=== PATIENT | female | born 1950 | race Caucasian/White ===

== ENCOUNTER 2020-03-06 13:58 | Outpatient (REF) | payer OTHER, SELFPAY ==
[2020-03-06 14:34] VITALS: BMI 26.5
[2020-03-06 14:39] VITALS: BP 153/72; PULSE 72; RESP 16; TEMP 37; O2SAT 94
== END 2020-03-06 13:59 | disposition home or self-care (01) ==
LOC: HO.MS 13:58
PROVIDERS: PCP Internal Medicine; Visit Provider Ophthalmology
PROC: (CPT 66821; principal; 2020-03-06 15:00)
DX: H26.491 Other secondary cataract, right eye (principal); I10 Essential (primary) hypertension; L93.0 Discoid lupus erythematosus; F17.210 Nicotine dependence, cigarettes, uncomplicated; Z79.899 Other long term (current) drug therapy; Z79.52 Long term (current) use of systemic steroids
CPT/HCPCS: 66821

== ENCOUNTER 2025-04-27 09:00 | Outpatient (AMB) | payer OTHER, SELFPAY ==
--- NOTE | 2025-04-27 09:03 | A.OFFPC_ITS ---
Vital Signs 04/27/25 09:09 Height 5 ft 2.5 in Weight 120 lb 6 oz BMI 21.7 BP 98/52 L Blood Pressure Location Lt brachial Position Sitting Respiration 16 Pulse 65 Pulse Source Pulse Oximeter Temp 97.1 F Temp Source Temporal Artery Scan Pulse Oximetry (%) 95 Oxygen Delivery Method Room Air Intake Visit Reasons: Est Patient, reestablish care Building Stonecutter Required: No Accompanied by: Friend Allergies Sulfa (Sulfonamide Antibiotics) (SULFA (SULFONAMIDE ANTIBIOTICS)) Allergy (Unknown, Verified 04/27/25 09:03) UNKNOWN meloxicam Adverse Reaction (Intermediate, Unverified 04/27/25 09:48) Unknown adhesive bandage Adverse Reaction (Intermediate, Uncoded 04/27/25 09:49) skin rash Medication List - Last Reconciled 04/27/25 by Monica Reid MD acitretin 25 mg PO DAILY ascorbic acid (vitamin C) (Vitamin C) 500 mg PO BID atorvastatin 20 mg PO DAILY carvedilol 3.125 mg PO BID cyanocobalamin (vitamin B-12) 1,000 mcg PO DAILY doxepin 6 mg PO BEDTIME folic acid 1 mg PO DAILY melatonin-pyridoxine HCl (B6) 5-10 mg ER 1 tab PO BEDTIME PRN mirtazapine 30 mg PO BEDTIME potassium chloride ER 20 mEq PO DAILY tacrolimus 0.1% topical BID PRN Tobacco use date assessed: 04/27/25 Fall risk assessment: No Falls in past year Last assessed Fall Risk: 04/27/25 Dental Screening Dental Screen Date: 04/27/25 Did you have a dental visit in the last 12 months?: Yes Did you have a dental problem in the last 6 months where you did not have access to dental care?: No Was dental information given to patient?: Patient has dentist HPI HPI Comments History of Present Illness Details The patient is a 74 year old female presenting [facility] and for management of chronic conditions. Accompanied by traveling inventory associate Nancy. Memory impairment: The patient is being followed by the Memory Disorders Program at [facility], having had one visit with a nurse practitioner, with another appointment scheduled in May. Insomnia and poor appetite: Sleep is reported as not great, with frequent nighttime awakenings, sometimes to urinate, and difficulty returning to sleep. She often does not go to bed before 12:30 a.m. or 1:30 a.m. She is taking mirtazapine 30 mg for appetite and sleep, doxepin 6 mg for sleep, and melatonin as recommended by memory disorder program. Her appetite is not great, and she does not eat large portions at one sitting. She takes one Ensure supplement per day with her pills. Her weight has been stable around 120 lbs. She eats cheese omelets, cottage cheese, muffins with cream cheese, and corned beef hash, but is not interested in meat. Recurrent urinary tract infections: The patient has a history of recurrent UTIs and has previously seen a urologist in [place]. Previous treatments included antibiotics and a vaginal cream, which were ineffective. She continues to experience UTIs despite taking Azo, with the latest infection occurring about two months ago. She reports burning with urination, which started about a week ago. 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 She was seen by Dr. John, a colorectal surgeon, who recommended against surgical intervention due to risk factors. Hypotension: Her blood pressure was 98/52 mmHg, which is on the lower side, possibly related to decreased water and protein intake. She does drink water but likely not enough. 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 Matias. Asymmetric leg edema: For the past couple of weeks, her left leg has appeared larger than her right. She has not complained of pain or shoe tightness. She has not had an ultrasound in the past month. Social History: - Lives with her caregiver, Nancy, who ac companied her to the visit. [facility] Medical History (Updated 04/27/25 @ 17:03 by Monica Reid MD) Left leg swelling Dementia GERD (gastroesophageal reflux disease) Osteoporosis Colocutaneous fistula Cutaneous lupus erythematosus Mixed hyperlipidemia Primary hypertension Recurrent UTI Surgical History (Updated 04/27/25 @ 10:02 by Monica Reid MD) Hx of cholecystectomy Hx of appendectomy History of colonoscopy (~12/10/16) Social History Housing: House Patient Tobacco Use Status: Current everyday Tobacco user Cigarettes Per Day: 8 Years Smoked: 40 years e-Cigarette/Vaping Use: Never Used Advance Directives Date on File: 03/06/20 service: No Current occupational status: retired Questionnaire PHQ-9 Over the last 2 weeks, how often have you been bothered by any of the following problems? 1. Little interest or pleasure in doing things: not at all 2. Feeling down, depressed, or hopeless: not at all 3. Trouble falling or staying asleep, or sleeping too much: not at all 4. Feeling tired or having little energy: several days 5. Poor appetite or overeating: not at all 6. Feeling bad about yourself - or that you are a failure or have let yourself or your family down: not at all 7. Trouble concentrating on things, such as reading the newspaper or watching television: several days 8. Moving or speaking so slowly that other people could have noticed. Or the opposite - being so fidgety or restless that you have been moving around a lot more than usual: not at all 9. Thoughts that you would be better off or of hurting yourself in some way: not at all Total score: 2 Depression Screening Interpretation: Negative Depression Screening Done: Yes 00427 - PHQ-9 Billing: Yes Source: Developed by Drs. Samy Ring, Marisel Guerrero, Esteban Pavon and colleagues, with an educational bettina from [employer]. AUDIT C Alcohol Use Questionnaire (AUDIT-C) 1. How often do you have a drink containing alcohol?: Never 3. How often do you have six or more drinks on one occasion?: Never Total Score: 0 Review of Systems Narrative Review of Systems - General: Reports poor appetite. - Endocrine: Denies fevers. - Genitourinary: Reports nocturia and burning with urination. - Gastrointestinal: Reports occasional heartburn and nausea. Denies other reflux symptoms. - Musculoskeletal: Denies pain in her leg despite swelling. - Neurological: Reports memory issues and lack of sense of time. Physical exam (Primary Care) Vital Signs: Last Vital Signs Temp 97.1 F 04/27/25 09:09 Pulse 65 04/27/25 09:09 Resp 16 04/27/25 09:09 BP 98/52 L 04/27/25 09:09 Pulse Ox 95 04/27/25 09:09 Oxygen Delivery Method Room Air 04/27/25 09:09 BMI result Body Mass Index 21.7 Tobacco/Smoking Status: Tobacco use Status Tobacco use date assessed 04/27/25 04/27/25 09:04 Patient Tobacco Use Status Current everyday Tobacco 04/27/25 09:22 e-Cigarette/Vaping Use Never Used 04/27/25 09:22 PHQ-9: PHQ-9 Score PHQ-9: Total score 2 04/27/25 10:34 Depression Screening Interpretation: Negative Narrative Physical Exam - Vitals: Blood pressure on presentation was 98/52 mmHg. Repeat blood pressure was 98/60 mmHg. - Respiratory: Lungs are clear to auscultation. - Cardiovascular: Normal heart sounds, regular rhythm, and a murmur is present. - Abdomen: Soft, non-distended, and non-tender with good bowel sounds. - Extremities: Left ankle circumference appears larger than the right, trace karina ma bilaterally Coding Level of Care Code Est Pt Level 4 (92974) Add On Problem Visit Only Diagnoses Primary hypertension I10 Mixed hyperlipidemia E78.2 Dementia with mood disturbance, unspecified dementia severity, unspecified dementia type F03.93 Dementia type: unspecified type Dementia severity: unspecified severity Dementia behavioral or psychological symptom: with mood disturbance Cutaneous lupus erythematosus L93.2 Additional Codes PHQ-9 - 40656 - PHQ-9 Billing: Yes ([id number]) Assessment & Plan Assessment & Plan (1) Primary hypertension: Code(s): I10 - Essential (primary) hypertension Category: Medical (2) Mixed hyperlipidemia: Code(s): E78.2 - Mixed hyperlipidemia Category: Medical (3) Dementia: Code(s): F03.90 - Unspecified dementia, unspecified severity, without behavioral disturbance, psychotic disturbance, mood disturbance, and anxiety Category: Medical Qualifiers: Dementia type: unspecified type Dementia severity: unspecified severity Dementia behavioral or psychological symptom: with mood disturbance Qualified Code(s): F03.93 - Unspecified dementia, unspecified severity, with mood disturbance (4) Cutaneous lupus erythematosus: Code(s): L93.2 - Other local lupus erythematosus Category: Medical Plan Assessment and Plan 1. Recurrent Urinary Tract Infections (UTIs) - The patient continues to experience UTIs despite prior evaluation and treatments, including antibiotics and vaginal cream. - She currently reports dysuria. - Plan is to obtain a urine culture and urinalysis today. - A referral will be placed for a second opinion with a new urologist to discuss prophylactic options 2. Asymmetric Left Lower Extremity Edema - To rule out deep vein thrombosis or other vascular issues, an order will be placed for a lower extremity ultrasound of the left leg. 3. Hypotension - Blood pressure readings today were low (98/52 mmHg and 98/60 mmHg). - This may be related to dehydration. - The patient is encouraged to increase her water intake, and may also try Pedialyte or Gatorade. - Her caregiver will monitor her blood pressure twice daily for one week and report the readings. - The carvedilol dose may be adjusted if her blood pressure remains low. 4. Insomnia and Poor Appetite - Sleep remains poor despite mirtazapine, doxepin, and melatonin. - Appetite is also poor. - It was suggested to administer melatonin about an hour and a half before bedtime, around 10:00 PM. - Encouraged to continue efforts to increase protein intake. 5. Health Maintenance - To monitor her chronic conditions, including lupus, and the effects of her medications, labs will be drawn today - The plan is to follow up in three to four months for a physical/wellness visit. 6. Enterocutaneous Fistula - The fistula is stable with current management of daily dressing changes. - The recommendation to avoid surgery due to risk factors is supported. 7. Memory Impairment - The patient is established with the Memory Disorders Program. - Visit notes from their consultation will be requested to coordinate care. Plan - Labs: Obtain lab work today, including a comprehensive metabolic panel to check liver, kidney, and potassium levels. - Urinalysis and Culture: The patient will provide a urine sample today - Imaging: An outpatient ultrasound of the left lower extremity will be ordered to evaluate asymmetric swelling. - Referrals: A referral will be sent to urology for evaluation of recurrent UTIs and consideration of prophylactic treatment. Notes from the Memory Disorder Program will be requested. - Home Monitoring: The patient's caregiver will monitor her blood pressure twice daily for one week and report the findings. - Lifestyle: The patient is instructed to increase her water intake to address potential dehydration and hypotension. It was recommended to take her melatonin earlier in the evening, around 10 PM. - Follow-up: Schedule a follow-up visit in 3-4 months for a physical/wellness exam. Patient Instructions - Please increase the amount of water you drink every day. You can also have Gatorade or Pedialyte. - Your caregiver will check your blood pressure twice a day for the next week and will let me know the results. - We will get your blood drawn and get a urine sample at the lab today. - We will be scheduling an ultrasound for your left leg to check for the swelling. This will not be today; the scheduling department will call you. - We are sending a referral to a urology specialist to help with your frequent urine infections. Their office will call you to schedule an appointment. - Try to take your melatonin earlier in the evening, around 10 PM. Orders: Orders Urine Culture Today E78.2 - Mixed hyperlipidemia, F03.90 - Unspecified alex ia, unspecified severity, without behavioral disturbance, psychotic disturbance, mood disturbance, and anxiety, I10 - Essential (primary) hypertension, L93.2 - Other local lupus erythematosus, N39.0 - Urinary tract infection, site not specified Hemoglobin A1c Today E78.2 - Mixed hyperlipidemia, F03.90 - Unspecified dementia, unspecified severity, without behavioral disturbance, psychotic disturbance, mood disturbance, and anxiety, I10 - Essential (primary) hypertension, L93.2 - Other local lupus erythematosus, N39.0 - Urinary tract infection, site not specified Vitamin D 25-OH Total Today E78.2 - Mixed hyperlipidemia, F03.90 - Unspecified dementia, unspecified severity, without behavioral disturbance, psychotic disturbance, mood disturbance, and anxiety, I10 - Essential (primary) hypertension, L93.2 - Other local lupus erythematosus, N39.0 - Urinary tract infection, site not specified Vitamin B12 Today E78.2 - Mixed hyperlipidemia, F03.90 - Unspecified dementia, unspecified severity, without behavioral disturbance, psychotic disturbance, mood disturbance, and anxiety, I10 - Essential (primary) hypertension, L93.2 - Other local lupus erythematosus, N39.0 - Urinary tract infection, site not specified UA and rflx microscopic Today N39.0 - Urinary tract infection, site not sp ecified Magnesium Today E78.2 - Mixed hyperlipidemia Complete Blood Count Auto Diff Today E78.2 - Mixed hyperlipidemia, F03.90 - Unspecified dementia, unspecified severity, without behavioral disturbance, psychotic disturbance, mood disturbance, and anxiety, I10 - Essential (primary) hypertension, L93.2 - Other local lupus erythematosus, N39.0 - Urinary tract infection, site not specified Comprehensive Met. Panel Today E78.2 - Mixed hyperlipidemia, F03.90 - Unspecified dementia, unspecified severity, without behavioral disturbance, psychotic disturbance, mood disturbance, and anxiety, I10 - Essential (primary) hypertension, L93.2 - Other local lupus erythematosus, N39.0 - Urinary tract infection, site not specified LDL Cholesterol Direct Today E78.2 - Mixed hyperlipidemia, F03.90 - Unspecified dementia, unspecified severity, without behavioral disturbance, psychotic disturbance, mood disturbance, and anxiety, I10 - Essential (primary) hypertension, L93.2 - Other local lupus erythematosus, N39.0 - Urinary tract infection, site not specified TSH reflex Free T4 Today E78.2 - Mixed hyperlipidemia, F03.90 - Unspecified dementia, unspecified severity, without behavioral disturbance, psychotic disturbance, mood disturbance, and anxiety, I10 - Essential (primary) hypertension, L93.2 - Other local lupus erythematosus, N39.0 - Urinary tract infection, site not specified venous duplex LE LT Today M79.89 - Other specified soft tissue disorders Referrals Urology Referral N39.0 - Urinary tract infection, site not specified
[2025-04-27 09:09] VITALS: BP 98/52; PULSE 65; RESP 16; TEMP 36.2; O2SAT 95; BMI 21.7
== END 2025-04-27 10:49 | disposition home or self-care (01) ==
LOC: HO.HMCHD 09:01
PROVIDERS: PCP Internal Medicine; Visit Provider Internal Medicine
DX: I10 Essential (primary) hypertension (principal); E78.2 Mixed hyperlipidemia; F03.93 Unspecified dementia, unspecified severity, with mood disturbance; L93.2 Other local lupus erythematosus

== ENCOUNTER 2025-04-27 11:02 | Outpatient (REF) | payer OTHER, SELFPAY ==
[2025-04-27 13:06] LABS: MANUAL DIFF FLAG NO
[2025-04-27 13:09] LABS: Appearance Urine Cloudy; Glucose Urine UA Negative (Negative); Hematocrit 39.6 % (37.0-47.0); Hemoglobin 12.5 g/dl (12.0-16.0); Imm Gran Abs Auto 0.02 X10*3/uL (0.00-0.03); Imm Gran Pct Auto 0.2 % (0.0-0.4); Lymphocytes Absolute Auto 2.8 X10*3/uL (1.2-4.9); Mean Corpuscular HGB Conc 31.6 g/dl (31.0-35.0); Mean Corpuscular Hemoglobin 29.8 pg (27.0-33.0); Mean Corpuscular Volume 94.3 fL (80.0-98.0); NRBC Abs Auto 0.000 X10*3/uL (0.0-0.012); NRBC Pct Auto 0.0 /100WBC (0.0-0.2); PH 5.5 (5.0-9.0); Platelet Count 333 X10*3/uL (160-400); Red Blood Count 4.20 X10*6/uL (4.20-5.50); Specific Gravity - Urine 1.015 (1.005-1.025); UMIC TRIGGER UA YES; White Blood Count 9.5 X10*3/uL (4.8-10.8)
[2025-04-27 13:50] LABS: Magnesium 2.2 mg/dL (1.6-2.6)
[2025-04-27 14:06] LABS: Vitamin B12 1449 pg/mL (200-900)
== END 2025-04-27 11:03 | disposition home or self-care (01) ==
LOC: HO.10HDL 11:02
PROVIDERS: Visit Provider Internal Medicine
DX: I10 Essential (primary) hypertension (principal); E78.2 Mixed hyperlipidemia; N39.0 Urinary tract infection, site not specified; F03.93 Unspecified dementia, unspecified severity, with mood disturbance; L93.2 Other local lupus erythematosus
CPT/HCPCS: 36415; 81001; 81003; 82306; 82607; 83036; 83721; 83735; 84443; 85025; 87086; 87088; 87186; 96127

== ENCOUNTER 2025-04-29 07:35 | Outpatient (REF) | payer OTHER, SELFPAY ==
--- OUTSIDE RECORDS SUMMARY | 2025-04-07 08:30 | XMS_ITS ---
Author Organization [facility] Address [address] [place] [phone] Care Team Providers Care Form Maker Plaster Name Role Phone Monica Reid Primary Care Provider Unavaila Kiki Chow [phone] Fernandez Encounters Encounter Location Date Provider Diagnosis [address] [address] 04/07/2025 Kiki Julian Plan Of Treatment Next Appt Details Provider Name:Kiki Jordan , 05/09/2025 02:00:00 PM, [address] [place] [address], [phone], Progress Notes * Yokasta CASTILLO MDOB :1950 (74 yo F)Acc No.[id number]:04/07/2025 Progress Note Patient: Yokasta SANZ Provider: Khalif Jordan DPM :1950 A ge:74 Y S ex:Female Date:04/07/2025 Address:[address] [place] [address] Pcp:Monica Reid Subjective: * Chief Complaints: * [...] Date: 06/07/2024 Generated for Cortes Falcon on: 06/30/2024 07:41 AM EST
--- NOTE | ~2025-04-29 | US_ITS ---
EXAMINATION: US TRIPLEX LOWER EXTREMITY, LEFT CLINICAL INFORMATION: M 79.89 COMPARISON: None available. TECHNIQUE: Color-flow triplex imaging with spectral analysis and compression Doppler were performed on the left lower extremity. FINDINGS: Respiratory variation, normal compression and augmented flow are demonstrated in the interrogated left common femoral vein, superficial femoral vein, profunda femoral vein, popliteal vein and midcalf peroneal and posterior tibial venous segments and right common femoral vein. There is an intraluminal abnormality identified in the left popliteal artery to the left femoral artery with the reverse waveform and collateral vessels. Peak systolic velocity of the left femoral artery is 139 cm/s with spectral broadening and monophasic waveform. There is no Jarrett's cyst. US/US venous duplex LE IMPRESSION: No acute deep venous thrombosis interrogated veins, left lower extremity. Negative for DVT. Probable embolus involving left popliteal artery to the left femoral artery resulting in collateral flow and monophasic waveforms with spectral broadening.. The form setter helper sent text message via [employer] connect at 8:38 AM to the requesting physician. Patient sent to the emergency department. Electronically signed by: Heber Tomlinson MD 04/29/2025 08:59 AM GAGE
--- OUTSIDE RECORDS SUMMARY | 2025-04-29 07:40 | XMS_ITS ---
Author Organization [facility] Care Team Providers Care High School Tutor Name Role Phone Ada Melvin Unavailable Unavailable Kenny Bonds Unavailable Unavailable Allergies and adverse reactions Code CodeSystem Substance Reaction Severity StartDate Concern Status adhesive bandage Unknown 09/23/20[place] [address] RXNORM Meloxicam Unknown 09/23/[address] Sulfa Antibiotics Unknown 09/23/2023 active Care Team Name Role Address Phone Organization Dates Kenny Bonds PCP [address] [place] [address], [address], [place] (Office): : [facility] [place] 09/23/2023 - 09/25/2023 Ada Melvin MA, [facility] 09/23/2023 - 09/25/2023 Goals Section Goals Description Status Target Date I will be free of falls through the review date. Active 10/14/2023 I will demonstrate the appro priate use of therapy recommended/provided adaptive device(s) to increase ability in ADL's through the review date. Active 10/14/2023 I will maintain current leve l of cognitive function through the review date. Active 10/14/2023 I will maintain current leve l of function in ADL's through the review date. Active 10/14/2023 I will not have an interrupt ion in normal activities due to pain through the review date. Active 10/14/2023 I will remain free from disc omfort, complications or s/sx related to dx of GERD through review date. Active 10/14/2023 I will remain free from disc omfort, complications or s/sx related to gastro-intestinal alterations through review date. Active 10/14/2023 I will remain free of compli cations related to hypertension through review date. Active 10/14/2023 Rosaline's Advance Directives will be honored and reevaluated as appropriate. Active 10/14/2023 Rosaline's friend/HCP, River hawthorne report satisfaction with the discharge plan. Active 10/14/2023 Rosaline's needs will be anticipated and met throu gh the review Active 10/14/2023 With staff help I will not develop any skin issu es. Active 10/14/2023 Mental Status Section Date Assessment Total Score Description 09/25/2023 BIMS 04 severe cognitiv e impairment CAM 0 No delirium ind icated PHQ-9 00 09/25/2023 BIMS 04 severe cognitiv e impairment CAM 0 No delirium ind icated PHQ-9 00 Insurance Providers Coverage Status Coverage Type Relationship to Subscriber Member Identifier Subscriber Identifier Group Identifier Payer Identifier and Other information 2023 Code: 51 Code System OID:[id number] .[id number]. 5 Code System Name: Source of Payment Typology (PHDMA) Display: Managed Care (Private) Translation: Code: Code System: OID:[id number] .[id number]. 1336 Code System Name: Insurance Type Code ([id number]) Display Name: Health Maintenance Organization (HMO) Plan Code: SELF Code System Name: HL7 RoleCode Code System OID:[id number] .[id number] Display Name: Self [id number] Root: [id number] Payer Name: [facility] Address: [facility] City: [place] State: [place] Country: [place] Code: 81 Code System OID:[id number] .[id number]. 5 Code System Name: Source of Payment Typology (PHDSC) Display: Self Pay Translation: Code: 09 Code System: OID:2.16.840.1 .[id number]. 1336 Code System Name: Insurance Type Code ([id number]) Display Name: Self-pay Plan of Treatment Section Interventions Intervention Code Code System Display Name Proposed D ate Problems Problem # Description Date of onset Resolved Date Code CodeSystem Concern Status 1 ABNORMAL LEVEL OF BLOOD MINERAL 09/23/[address] active 2 DEFICIENCY OF OTHER SPECIFIED B GROUP VITAMINS 09/23/[address] active 3 DIARRHEA, UNSPECIFIED 09/23/[address] active 4 DISCOID LUPUS ERYTHEMATOSUS 09/23/[address] active 5 DIVERTICULITIS OF INTESTINE, PART UNSPECIFIED, WITHOUT PERFORATION OR ABSCESS WITHOUT BLEEDING 09/23/[address] active 6 ESSENTIAL (PRIMARY) HYPERTENSION 09/23/[address] active 7 GASTRO-ESOPHAGEAL REFLUX DISEASE WITHOUT ESOPHAGITIS 09/23/[address] active 8 HYPERLIPIDEMIA, UNSPECIFIED 09/23/[address] active 9 HYPOKALEMIA 09/23/[address] active 10 UNSPECIFIED DEMENTIA, UNSPECIFIED SEVERITY, WITHOUT BEHAVIORAL DISTURBANCE, PSYCHOTIC DISTURBANCE, MOOD DISTURBANCE, AND ANXIETY 09/23/[address] active 11 WEAKNESS 09/23/[address] active Reason for Referral No Reasons for Referral Entered Social History Social History Observation Description Start Date End Date Code Code System Current Smoking Status Tobacco smoking consumption unknown 136440948 SNOMED CT Sex Assigned At Female 1950 86073-2 [facility] Gender Identity Sexual Orientation Vital Signs Code Code System Vitals Name Values and Units Timing Information 09381-0 [facility] Pain Level Value=0.0 09/25/2023 8302-2 [facility] Height Value=64.0 Units=Inches 09/24/2023 38784-7 [facility] Weight Dwqhz=154.7 Units=Lbs 12/2023 79084-8 [facility] O2 % BldC Oximetry Value=97.0 Units= % 09/24/2023 9279-1 [facility] Respiratory Rate Value=16.0 Units=/m in 09/24/2023 8310-5 [facility] Body Temperature Value=97.7 Units= F 09/24/2023 8867-4 [facility] Heart rate Value=72.0 Units=/min 12/2023 8462-4 [facility] Blood Pressure-Diastolic Value=59 Un its=mmHg 09/24/2023 8480-6 [facility] Blood Pressure-Systolic Value=98 Uni ts=mmHg 09/24/2023
--- OUTSIDE RECORDS SUMMARY | 2025-04-29 07:40 | XMS_ITS | Patient Health Record ---
[facility] Organization [facility] Address [address] [place] [address] Care Team Providers Care Solar Consultant Name Role Phone JeanetteKeisha inmanberly Primary Care Provider Unavaila pattie Black, Kiki Unavailable [phone] Allergies Allergen (clinical drug ingredient) Drug/Non Drug Allergy documented on EMR Reaction Allergy Type Onset Date Status Adhesive Unknown Allergy Active Substance with sulfonamide structure and antibacterial mechanism of action (substance) Sulfa Antibiotics Unknown Drug Allergy Active Reason For Referral No Information Medications Medication SIG (Take, Route, Frequency, Duration) Notes Start Date End Date Status Alendronate Sodium 70 MG Oral; Duration: 84 Days Not-Taking Potassimin Active Carvedilol 3.125 MG Oral; Duration: 90 Days Active amLODIPine-Atorvastatin 10-40 MG TAKE 1 TABLET BY MOUTH EVERY DAY Oral; Duration: 90 Days Active predniSONE 10 MG TAKE 2 TABLETS BY MO UTH EVERY DAY Oral; Duration: 30 Days Not-Taking Amoxicillin-Pot Clavulanate 875-125 MG TAKE 1 TABLET BY MOUTH 2 TIMES A DAY FOR 7 DAYS WITH FOOD Oral; Duration: 7 Days Active Murine Ear 6.5 % INSTILL 5 DROPS INTO BOTH EARS 2 TIMES A DAY FOR 4 DAYS Otic; Duration: 11 Days Not-Taking Folic Acid 1 MG Oral; Duration: 90 Days Active Vitamin B-12 1000 MCG TAKE 1 TABLET BY M OUTH EVERY DAY Oral; Duration: 90 Days Active Doxepin HCl 6 MG Oral; Duration: 30 Days Active Mirtazapine 15 MG TAKE 1 TABLET BY NIMA EVERYDAY AT BEDTIME Oral; Duration: 30 Days Active Immunizations Vaccine Route Administration Date Status Comme nts Influenza Unknown 03/19/2024 Administered Social History Tobacco Use: Social History Observation Description Date Details (start date - stop date) Never Smoker NA - NA Alcohol Screen Question Answer Notes Did you have a drink containing alcohol in the p ast year? No Points 0 Interpretation Negative Tobacco use other than smoking: Question Answer Notes Are you an other tobacco user? No Tobacco Control (Standard) Question Answer Notes Tobacco use: Nonsmoker AUDIT-C (Standard) Question Answer Notes Did you have a drink containing alcohol in the p ast year? No Points 0 Interpretation Negative Problems Problem Type SNOMED Code ICD Code Onset Dates Problem Status W/U Status Risk Notes Problem Bilateral atherosclerosis of arteries of lower limbs (disorder) ([id number] ) Atherosclerosis of [place] artery of both lower extremities, with unspecified presence of clinical manifestation (I70.203) Active confirmed Vital Signs Blood pressure diastolic 75 mm Hg 12/30/2024 Height 5ft3in in 12/30/2024 Blood pressure systolic 116 mm Hg 12/30/2024 Weight 118 lbs 12/30/2024 BMI 20.9 kg/m2 12/30/2024 Procedures Procedure Date Ordered Date Performed Result Body Sit e 87036-Gcmd Destruction, 1-14 06/28/2024 N/A 65762-ENQW SKIN LESIONS, OVER 4 06/28/2024 N/A M8267-TIGEUOEI DYSTROPHIC NAILS ANY # 06/28/2024 N/A 14726-TTHY SKIN LESIONS, OVER 4 09/27/2024 N/A E1520-KWSESAJA DYSTROPHIC NAILS ANY # 09/27/2024 N/A 60333-DBIV SKIN LESIONS, OVER 4 12/30/2024 N/A Y9875-OIQWBYDU DYSTROPHIC NAILS ANY # 12/30/2024 N/A Encounters Encounter Location Date Provider Diagnosis [facility] [address] 06/28/2024 Kiki Black Atherosclerosis of [place] artery of both lower extremities, with unspecified presence of clinical manifestation I70.203 ; Plantar wart B07.0 and Pain in left toe(s) M79.675 [facility] [address] 09/27/2024 Kiki Black Atherosclerosis of [place] artery of both lower extremities, with unspecified presence of clinical manifestation I70.203 ; Plantar wart B07.0 and Pain in left toe(s) M79.675 [facility] [address] [place] [address] 12/30/2024 Kiki Black Atherosclerosis of [place] artery of both lower extremities, with unspecified presence of clinical manifestation I70.203 Assessments Encounter Date Diagnosis (ICD Code) Assessment Notes Treatment Notes Treatment Clinical Notes Section Notes 06/28/2024 Plantar wart (ICD-10 - B07.0) 06/28/2024 Atherosclerosis of [place] artery of both lower extremities, with unspecified presence of clinical manifestation (ICD-10 - I70.203) 09/27/2024 Atherosclerosis of [place] artery of both lower extremities, with unspecified presence of clinical manifestation (ICD-10 - I70.203) 12/30/2024 Atherosclerosis of [place] artery of both lower extremities, with unspecified presence of clinical manifestation (ICD-10 - I70.203) 09/27/2024 Plantar wart (ICD-10 - B07.0) 06/28/2024 Pain in left toe(s) (ICD-10 - M79.675) 09/27/2024 Pain in left toe(s) (ICD-10 - M79.675) Plan Of Treatment Pending Test Test Name Order Date 65621-Xhls Destruction, -08/28/2023 11205-Ploe Destruction, -12/15/2023 95845-Unqv Destruction, -03/25/2024 88143-Vkzy Destruction, -06/28/2024 39098-Scywslwb Plate 08/28/2023 44642-WAGM SKIN LESIONS, OVER 4 08/28/19 24 17665-TBDX SKIN LESIONS, OVER 4 12/15/19 24 10699-ZAWV SKIN LESIONS, OVER 4 06/28/19 25 95399-VDYB SKIN LESIONS, OVER 4 03/25/20 24 96045-VGNT SKIN LESIONS, OVER 4 09/28/19 25 38267-DYQK SKIN LESIONS, OVER 4 12/31/19 25 Q1497-MYEMMSBK DYSTROPHIC NAILS ANY # H7388-XPEMYVTF DYSTROPHIC NAILS ANY # O6416-LFVKUGIP DYSTROPHIC NAILS ANY # Q0385-YZEODXZB DYSTROPHIC NAILS ANY # O3739-BBGONFBJ DYSTROPHIC NAILS ANY # V3371-VIUSFIWI DYSTROPHIC NAILS ANY # Next Appt Details Provider Name:Kiki Jordan , 05/09/2025 02:00:00 PM, [address] [place], [address], Insurance Providers Payer Name Payer Address Payer Phone Subscriber Number Group Number Insured Name Patient Relationship to Insured Coverage Start Date Coverage End Date [facility] [address] [place] [address] [id number] Yokasta Castillo Self - patient is the insured Medical (General) History Medical History History ICD Code CAD (Cholesterol) Cancer High blood pressure Lupus Measles Diverticulitis Hallux valgus (acquired), left foot M20. 12 Hallux valgus (acquired), right foot M20 .11 Surgical History Surgery Date(Month/Year) GEOVANI Drain in stomach 08/2023 Hospitalization History Reason Date(Month/Year) [facility]- open sores 2023 [facility]- fall 08/2023
== END 2025-04-29 07:36 | disposition home or self-care (01) ==
LOC: HO.US 07:35
PROVIDERS: PCP Internal Medicine; Visit Provider Internal Medicine
DX: M79.89 Other specified soft tissue disorders (principal)
CPT/HCPCS: 93971

== ENCOUNTER → 2025-04-29 07:36 | Outpatient (BNV) | payer OTHER, SELFPAY | PROVIDERS: PCP Internal Medicine; Visit Provider Radiology Diagnostic Radiology | DX: K63.89 Other specified diseases of intestine (principal); I70.92 Chronic total occlusion of artery of the extremities; M79.89 Other specified soft tissue disorders | CPT/HCPCS: 75635; 93971 ==

== ENCOUNTER 2025-04-29 08:54 | Emergency (ER) | payer OTHER, SELFPAY ==
--- NOTE | ~2025-04-29 | CT_ITS ---
EXAMINATION: CT ABDOMINAL AORTA ANGIO BILATERAL RUNOFF WITH IV CONTRAST HISTORY: ? L foot arterial occlusion COMPARISON: There are no prior studies available for comparison. TECHNIQUE: CT angiogram of the abdomen and pelvis with bilateral lower extremity runoff was performed following administration of 85 mL Omnipaque 350 using standard departmental protocol. Coronal and sagittal reformatted images were generated and reviewed. This CT exam was performed with one or more of the following dose reduction techniques: automated exposure control, adjustment of the mA and/or kV according to patient size, use of iterative reconstruction technique. DLP: 388 mGy-cm FINDINGS: LOWER CHEST: The visualized lung bases are clear. There is no pleural effusion. CARDIOVASCULATURE: The heart is normal in size. There is no pericardial effusion. LIVER: The liver is normal in size and contour. No liver mass is identified. The hepatic and portal veins are patent. GALLBLADDER / BILE DUCTS: The gallbladder is surgically absent. There is no intra or extrahepatic biliary ductal dilatation. SPLEEN: The spleen is normal in size. No focal splenic lesion is identified. PANCREAS: The pancreas is unremarkable in appearance. ADRENAL GLANDS: Within normal limits. KIDNEYS/RETROPERITONEUM: No renal calculi are identified. There is no hydronephrosis. There are bilateral renal cysts measuring up to 3.5 cm on the right and 1.6 cm on the left. LYMPH NODES: No abdominal lymphadenopathy. VASCULATURE: There is diffuse atherosclerotic irregularity of the abdominal aorta. There is no aneurysm. The celiac axis, superior mesenteric artery, inferior mesenteric artery, bilateral renal arteries are patent. The bilateral common and external iliac arteries are patent. On the right, there is a probable moderate to severe stenosis of the common femoral artery. The right superficial femoral artery is patent. The right popliteal artery is patent. There is two-vessel runoff in the right calf via the anterior tibial and peroneal arteries. On the left, the common femoral artery is patent. The left superficial femoral artery is occluded at its origin. There is reconstitution of the popliteal artery just above the knee joint. There is two-vessel runoff in the left calf via the posterior tibial and peroneal arteries. MESENTERY/PERITONEUM: No free fluid. No masses. There is no free intraperitoneal gas. STOMACH: There is a small hiatal hernia. The remainder of the stomach is collapsed. SMALL BOWEL: The visualized small bowel is normal in caliber. COLON: There is focal wall thickening of the hepatic flexure of the colon. There is diverticulosis of the descending and sigmoid colon, without evidence of diverticulitis. There is an abnormal appearing soft tissue density in the left lower quadrant which is adherent to the sigmoid colon and the urinary bladder. This extends to the skin surface and is consistent with the patient's known enterocutaneous fistula. URINARY BLADDER: There is gas in the urinary bladder consistent with a fistula. PELVIC ORGANS: The prostate is normal in size. BONES: There is degenerative disc disease of the spine. There is a moderate compression deformity of L2 which appears chronic. CT/CT angio abd aorta runoff IMPRESSION: 1. Occlusion of the left superficial femoral artery at its origin with reconstitution of the popliteal artery. 2. Probable moderate to severe focal stenosis of the right common femoral artery. 3. Focal wall thickening of the hepatic flexure of the colon, suspicious for a mass. Colonoscopy is recommended. 4. Abnormal tubular appearing structure in the left lower quadrant adherent to the sigmoid colon and the urinary bladder and extending to the skin surface, consistent with the patient's known enterocutaneous fistula. Gas in the urinary bladder is also compatible with a fistula. Electronically signed by: Samy Uriarte MD 04/29/2025 12:08 PM GAGE AMANDA
[2025-04-29 08:57] VITALS: BP 156/71; PULSE 68; RESP 16; TEMP 36.6; BMI 32.6
--- NOTE | 2025-04-29 09:15 | ED.EXTPRO ---
HPI - Extremity Problem General Chief complaint: Extremity Problem Stated complaint: Arterial Clot Time Seen by Provider: 04/29/25 08:59 Source: patient Mode of arrival: ambulatory Limitations: no limitations History of Present Illness ED Provider: ALEX Malone HPI Narrative: Chief Complaint: ?My foot and ankle have been swollen and now painful for about a week.? History of Present Illness: The patient presents to the Emergency Department for evaluation of left lower extremity swelling and pain. Approximately one week ago, while putting on sneakers, the patient noted mild swelling of the left foot and ankle compared with the right. Swelling has progressively worsened and is now associated with pain. The patient was seen by her primary care provider (Dr. Nguyễn) on Friday, who ordered an ultrasound out of concern for a clot; results reportedly showed an arterial clot, and the PCP instructed the patient to come to the ED immediately. No prior anticoagulation therapy. Sensation remains intact. No reports of severe calf pain, chest pain, or shortness of breath. Related Data Home Medications ?Medication ?Instructions ?Recorded ?Confirmed acitretin 25 mg capsule 25 mg PO DAILY 04/27/25 04/27/25 ascorbic acid (vitamin C) 500 mg 500 mg PO BID 04/27/25 04/27/25 tablet (Vitamin C) atorvastatin 20 mg tablet 20 mg PO DAILY 04/27/25 04/27/25 carvedilol 3.125 mg tablet 3.125 mg PO BID 04/27/25 04/27/25 cyanocobalamin (vitamin B-12) 1,000 mcg PO DAILY 04/27/25 04/27/25 1,000 mcg tablet doxepin 6 mg tablet 6 mg PO BEDTIME 04/27/25 04/27/25 folic acid 1 mg tablet 1 mg PO DAILY 04/27/25 04/27/25 melatonin ER 5 mg-pyridoxine HCl 1 tab PO BEDTIME PRN insomnia 04/27/25 04/27/25 (B6) 10 mg tablet,extended release mirtazapine 30 mg tablet 30 mg PO BEDTIME 04/27/25 04/27/25 potassium chloride 20 mEq 20 meq PO DAILY 04/27/25 04/27/25 tablet,extended release tacrolimus 0.1 % topical ointment topical BID PRN 04/27/25 04/27/25 Previous Rx's ?Medication ?Instructions ?Recorded cephalexin 500 mg tablet 500 mg PO BID 7 days #14 tabs 04/27/25 Allergies Allergy/AdvReac Type Severity Reaction Status Date / Time Sulfa (Sulfonamide Allergy Unknown UNKNOWN Verified 04/29/25 08:59 Antibiotics) (SULFA (SULFONAMIDE ANTIBIOTICS)) meloxicam AdvReac Intermediate Unknown Verified 04/29/25 08:59 adhesive bandage AdvReac Intermediate skin rash Uncoded 04/27/25 09:49 Review of Systems Review of Systems: Yes all other systems are reviewed and are negative [facility] Past Medical History Attestation statement: The following information was validated with the patient. Source: old records reviewed and nursing notes reviewed Medical History (Updated 04/29/25 @ 12:21 by ALEX Berg) Left leg swelling Dementia GERD (gastroesophageal reflux disease) Osteoporosis Colocutaneous fistula Cutaneous lupus erythematosus Mixed hyperlipidemia Primary hypertension Recurrent UTI Surgical History (Updated 04/27/25 @ 10:02 by Monica Reid MD) Hx of cholecystectomy Hx of appendectomy History of colonoscopy (~12/10/16) Social History Social History Housing: House Patient Tobacco Use Status: Current everyday Tobacco user Cigarettes Per Day: 8 Years Smoked: 40 years e-Cigarette/Vaping Use: Never Used Advance Directives: Yes Advance Directives Information Provided: Yes Advance Directives on File: No Advance Directives Date on File: 03/06/20 service: No Current occupational status: retired Physical Exam Exam: Exam: Appearance: Alert.? Oriented X3.? No acute distress.? Head: Normocephalic, atraumatic, no step-offs or deformities Eyes: Pupils equal, round and reactive to light.? Neck: Normal inspection.? Neck supple.? CVS: Normal heart rate and rhythm.? Pulses normal.? Respiratory: No respiratory distress.? Breath sounds normal.? Abdomen: Soft and nontender.? Skin: Skin warm and dry.? Normal skin color.? Normal skin turgor.? Extremities: No calf ttp. Global weakness. Left foot and ankle with mild swelling when compared to the right sensation slightly decreased to the left distal foot patient able to wiggle toes and dorsiflex and plantar flex bilaterally I am unable to palpate dorsalis pedis anterior tibialis and posterior tibialis pulses on the left however palpable in the right. Back: No midline tenderness, no C-spine tenderness, full range of motion, no CVA tenderness bilaterally Neuro: Oriented X 3.? No motor deficit.? No sensory deficit. CN 2-12 intact Vital Signs: Vital Signs: Last Vital Signs Temp 97.9 F 04/29/25 08:57 Pulse 76 04/29/25 09:29 Resp 14 04/29/25 09:29 BP 125/59 L 04/29/25 09:29 Pulse Ox 98 04/29/25 09:29 O2 Del Method Room Air 04/29/25 09:29 BMI result Body Mass Index 32.6 vss Course Reevaluation(s) Reevaluation #1: CBC with no acute findings needing intervention. Chemistry unremarkable. PT/remarkable. Time: 10:00 Reevaluation #2: Vascular Dr. Davis at the bedside for evaluation Time: 10:20 Reevaluation #3: CT angio abdominal aorta runoff with an occlusion of the left superficial femoral artery at its origin with reconstitution of the popliteal P. Probable moderate to severe focal stenosis of the right common femoral artery. Focal wall thickening of the hepatic flexure of the colon suspicious for possible mass colonoscopy is recommended. Abnormal tubular peeling structure in the left lower quadrant adhere to the sigmoid colon and urinary bladder and extending to the skin surface consistent with fistula. Will have patient follow-up with GI and PCP to further evaluate these abnormalities. No abdominal tenderness on exam more any acute findings today that would require inpatient hospitalization. Educated patient on diagnosis and treatment plan, answered all question, patient verbalizes understanding. At this time patient will be discharged home, advised to return with new or worsening symptoms. Educated on worrisome signs and symptoms and when to return. At this time I feel comfortable discharge home. Time: 12:18 Medications Administered Discontinued Medications Generic Name Dose Route Start Last Admin Trade Name Freq PRN Reason Stop Dose Admin Iohexol 100 ml 04/29/25 11:29 04/29/25 11:29 Iohexol 350 Mg/Ml 100 Ml Infus..Btl IV 04/29/25 11:30 100 ml ONCE ONE Administration Medical Decision Making Medical Decision Making [facility] Narrative: 74-year-old female presenting with acute left foot/ankle swelling and pain with reported arterial clot on recent ultrasound. Problem #1: Suspected arterial clot ? left lower extremity Assessment: Progressive swelling and new pain over one week; outpatient ultrasound reportedly positive for arterial clot; preserved motor and sensory function. Plan: Retrieve and review the ultrasound images and report. Consult vascular surgery for further management recommendations. Monitor neurovascular status of the left foot/ankle while in ED. Pending vascular recommendations, discuss need for anticoagulation or possible intervention. Update PCP with findings and plan. Problem #2: Tobacco use Assessment: Current smoker (~? pack per day). Plan: Differential Diagnosis Differential Diagnoses: The differential diagnosis associated with the presentation includes Arterial thrombosis/embolism: Supported by reported outpatient ultrasound showing arterial clot. Acute onset of symptoms, progressive swelling and pain, and PCP concern all support this diagnosis. Preserved motor and sensory function argues against severe acute ischemia. Deep vein thrombosis (DVT): DVT is a common cause of unilateral lower extremity swelling and pain. However, the ultrasound reportedly identified an arterial (not venous) clot, and there is no mention of classic DVT risk factors or findings such as calf tenderness. Cellulitis or soft tissue infection: No fever, chills, or local warmth/erythema described. No systemic symptoms reported. Exam does not note overlying skin changes suggestive of infection. Acute exacerbation of chronic venous insufficiency: History of prior bilateral leg swelling during hospitalization, but current presentation is unilateral and acute, making this less likely. Lymphedema: No history of lymphatic surgery or malignancy. Lymphedema is typically chronic and non-painful, and usually not acute in onset. Heart failure-related edema: Prior history of bilateral swelling during hospitalization, but current swelling is unilateral and acute, which is less typical for heart failure. Trauma or musculoskeletal injury: No reported trauma or injury. Onset was spontaneous while putting on sneakers. Medication-induced edema: No medications or recent changes reported that are known to cause edema. Other vascular causes (e.g., vasculitis): No systemic symptoms or findings suggestive of vasculitis. No rash, purpura, or other signs noted. Admission/Observation Consideration of admission/observation: Escalation of care including admission/observation considered Consult Healthcare Provider Management of the patient was discussed with: Conciliation Court Judge Lab Data MDM Lab Attestation statement: I reviewed the patient's lab results. 04/29/25 09:46 04/29/25 09:46 Labs: Lab Results 04/29/25 Range/Units 09:46 WBC 7.4 (4.8-10.8) X10*3/uL RBC 3.95 L (4.20-5.50) X10*6/uL Hgb 11.8 L (12.0-16.0) g/dl Hct 37.4 (37.0-47.0) % MCV 94.7 (80.0-98.0) fL MCH 29.9 (27.0-33.0) pg MCHC 31.6 (31.0-35.0) g/dl RDW 14.2 (11.0-16.0) % Plt Count 277 (160-400) X10*3/uL MPV 8.2 L (9.4-12.3) fL Immature Gran % (Auto) 0.4 (0.0-0.4) % Neut % (Auto) 56.4 (45-73) % Lymph % (Auto) 29.8 (20-40) % [place] % (Auto) 8.3 (2-11) % Eos % (Auto) 4.7 H (0-4) % Baso % (Auto) 0.4 (0-2) % Lymph # (Auto) 2.2 (1.2-4.9) X10*3/uL Mingo # (Auto) 0.6 (0.1-1.2) X10*3/uL Eos # (Auto) 0.4 (0.0-0.4) X10*3/uL Baso # (Auto) 0.0 (0.0-0.2) X10*3/uL Abs Immat Gran (auto) 0.03 (0.00-0.03) X10*3/uL Absolute Neuts (auto) 4.2 (2.0-8.3) x10*3/uL Absolute Nucleated RBC 0.000 (0.0-0.012) X10*3/uL Nucleated RBC % (auto) 0.0 (0.0-0.2) /100WBC PT 11.9 (11.2-13.5) SEC INR 1.0 (0.9-1.1) Sodium 140 (135-145) mmol/L Potassium 4.3 (3.3-5.1) mmol/L Chloride 109 H (96-108) mmol/L Carbon Dioxide 26 (22-29) mmol/L Anion Gap 9 L (12-20) BUN 9 (9-16) mg/dL Creatinine 0.92 (0.5-1.4) mg/dL Estim Creat Clear Calc 51.2 Estimated GFR 59 Random Glucose 82 (60-115) mg/dL Calcium 8.2 L (8.4-10.2) mg/dL Magnesium 2.1 (1.6-2.6) mg/dL Total Bilirubin 0.2 (0.0-1.0) mg/dL AST 21 (5-31) U/L ALT 11 (0-31) U/L Alkaline Phosphatase 74 (39-117) U/L Total Protein 5.9 L (6.5-8.0) g/dL Albumin 3.1 L (3.5-5.0) g/dL Independent Interpretation I performed an independent interpretation of an: Ultrasound Interpretation: US/US venous duplex LE LT IMPRESSION: No acute deep venous thrombosis interrogated veins, left lower extremity. Negative for DVT. Probable embolus involving left popliteal artery to the left femoral artery resulting in collateral flow and monophasic waveforms with spectral broadening.. The conservation technician sent text message via [employer] at 8:38 AM to the requesting physician. Patient sent to the emergency department. Radiology Impression Discussion of test interpretation with radiology: I have reviewed the radiologist's reading. Independent Historian Clinical information obtained from an independent historian. History obtained from or confirmed by: Other (Healthcare proxy ) Critical Care Time Critical Care Time Critical Care Time: Yes Total Critical Care Time: 45 Attestation: I attest to this time spent taking care of the patient, obtaining history, physical, reviewing labs, imaging, treatment of patients condition +/- specialist/hospitalist consult +/- procedure Discharge Plan Discharge Clinical Impression: Arterial occlusion, Peripheral arterial disease, Abnormal CT of the abdomen Patient Disposition: Home, Self-Care Additional Instructions: Take your medications as prescribed. If you were prescribed antibiotics today, it is important that you take your medication to their entirety, do not skip any doses, do not finish them early. Follow-up with your primary care provider this week. Please discuss CT findings with your PCP will also send you a referral to gasterenterology Return to the emergency department with new or worsening symptoms. Such as fevers, chills, chest pain, shortness of breath, nausea, vomiting, dizziness, headache, vision changes, lethargy In case of emergency call 911 CT/CT angio abd aorta runoff IMPRESSION: 1. Occlusion of the left superficial femoral artery at its origin with reconstitution of the popliteal artery. 2. Probable moderate to severe focal stenosis of the right common femoral artery. 3. Focal wall thickening of the hepatic flexure of the colon, suspicious for a mass. Colonoscopy is recommended. 4. Abnormal tubular appearing structure in the left lower quadrant adherent to the sigmoid colon and the urinary bladder and extending to the skin surface, consistent with the patient's known enterocutaneous fistula. Gas in the urinary bladder is also compatible with a fistula. Prescriptions: No Action cephalexin 500 mg tablet 500 mg PO BID 7 Days Qty: 14 0RF Rx Instructions: take with food atorvastatin 20 mg tablet 20 mg PO DAILY cyanocobalamin (vitamin B-12) 1,000 mcg tablet 1,000 mcg PO DAILY carvedilol 3.125 mg tablet 3.125 mg PO BID ascorbic acid (vitamin C) [Vitamin C] 500 mg tablet 500 mg PO BID acitretin 25 mg capsule 25 mg PO DAILY mirtazapine 30 mg tablet 30 mg PO BEDTIME tacrolimus 0.1 % ointment topical BID PRN folic acid 1 mg tablet 1 mg PO DAILY doxepin 6 mg tablet 6 mg PO BEDTIME melatonin-pyridoxine HCl (B6) 5-10 mg tablet extended release 1 tab PO BEDTIME PRN (Reason: insomnia) potassium chloride 20 mEq tablet extended release 20 meq PO DAILY Referrals: Monica Ried MD [Primary Care Provider, Internal Medicine] [facility] [Provider Group, Gastroenterology] - 1 week [facility] [Provider Group, Vascular Surgery] - 5 days Print Language: Kiswahili
[2025-04-29 09:29] VITALS: BP 125/59; PULSE 76; RESP 14; O2SAT 98
--- NOTE | 2025-04-29 09:38 | PC.NURSE ---
Pts feet pink. Left cooler than right- DP and PT pulses positive via doppler but faint compared to right. No edema. Pt denies pain at this time.
[2025-04-29 09:51] LABS: MANUAL DIFF FLAG NO
[2025-04-29 09:54] LABS: Hematocrit 37.4 % (37.0-47.0); Hemoglobin 11.8 g/dl (12.0-16.0); Imm Gran Abs Auto 0.03 X10*3/uL (0.00-0.03); Imm Gran Pct Auto 0.4 % (0.0-0.4); Lymphocytes Absolute Auto 2.2 X10*3/uL (1.2-4.9); Mean Corpuscular HGB Conc 31.6 g/dl (31.0-35.0); Mean Corpuscular Hemoglobin 29.9 pg (27.0-33.0); Mean Corpuscular Volume 94.7 fL (80.0-98.0); NRBC Abs Auto 0.000 X10*3/uL (0.0-0.012); NRBC Pct Auto 0.0 /100WBC (0.0-0.2); Platelet Count 277 X10*3/uL (160-400); Red Blood Count 3.95 X10*6/uL (4.20-5.50); White Blood Count 7.4 X10*3/uL (4.8-10.8)
[2025-04-29 10:07] LABS: INTERNATIONAL NORM RATIO 1.0 (0.9-1.1); Prothrombin Time 11.9 SEC (11.2-13.5)
[2025-04-29 10:08] LABS: Alanine Aminotransferase 11 U/L (0-31); Albumin Level 3.1 g/dL (3.5-5.0); Alkaline Phosphatase 74 U/L (39-117); Anion Gap 9 (12-20); Aspartate Amino Transferase 21 U/L (5-31); Blood Urea Nitrogen 9 mg/dL (9-16); Calcium 8.2 mg/dL (8.4-10.2); Carbon Dioxide 26 mmol/L (22-29); Chloride 109 mmol/L (96-108); Creatinine Clr Calc Pharmacy 51.2; Estimated Glomerular Filt Rate 59; Magnesium 2.1 mg/dL (1.6-2.6); Potassium 4.3 mmol/L (3.3-5.1); Sodium 140 mmol/L (135-145); Total Protein 5.9 g/dL (6.5-8.0)
--- NOTE | 2025-04-29 10:09 | PC.NURSE ---
Pt ambulated to [place] with assist of her friend. Steady on feet no difficulty.
[2025-04-29] MEDS: iohexoL 350 MG/ML 100 ML INFUS..BTL IV (11:29)
[2025-04-29 12:00] VITALS: BP 148/78; PULSE 70; RESP 20; O2SAT 96
[2025-04-29 17:02] VITALS: BP 148/78; PULSE 70; RESP 20; TEMP 36.3; O2SAT 96
== END 2025-04-29 17:03 | disposition home or self-care (01) ==
PROVIDERS: Physician Assistant; Emergency Provider Emergency Medicine; PCP Internal Medicine
DX: I70.202 Unspecified atherosclerosis of native arteries of extremities, left leg (principal); M79.89 Other specified soft tissue disorders; M25.572 Pain in left ankle and joints of left foot; R93.5 Abnormal findings on diagnostic imaging of other abdominal regions, including retroperitoneum; L93.2 Other local lupus erythematosus
CPT/HCPCS: 36415; 75635; 80053; 83735; 85025; 85610; 99284; Q9967

== ENCOUNTER 2025-05-05 10:43 | Outpatient (AMB) | payer OTHER, SELFPAY ==
--- OUTSIDE RECORDS SUMMARY | 2025-04-07 08:30 | XMS_ITS ---
Author Organization [facility] Address [address] [place] [address] Care Team Providers Care Car Servicer Name Role Phone Monica Reid Primary Care Provider Unavaila Kiki Chow [phone] Fernandez Encounters Encounter Location Date Provider Diagnosis [address] [address] 04/07/2025 Kiki Julian Plan Of Treatment Next Appt Details Provider Name:Kiki Jordan , 05/09/2025 02:00:00 PM, [address] [place] [address], [phone], Progress Notes * Yokasta CASTILLO MDOB :1950 (74 yo F)Acc No.[id number]:04/07/2025 Progress Note Patient: Yokasta SANZ Provider: Khalif Jordan DPM :1950 A ge:74 Y S ex:Female Date:04/07/2025 Address:[address] [place] [address] Pcp:Monica Reid Subjective: * Chief Complaints: * [...] Date: 06/07/2024 Generated for Cortes Falcon on: 07/06/2024 01:38 PM EST
--- NOTE | 2025-05-05 10:53 | MHC.PC.OV ---
Vital Signs 05/05/25 10:56 Height 5 ft 2 in Weight 121 lb 2 oz BMI 22.2 BP 98/60 Blood Pressure Location Lt brachial Position Sitting Respiration 16 Pulse 76 Pulse Source Pulse Oximeter Temp 97.1 F Temp Source Temporal Artery Scan Pulse Oximetry (%) 96 Oxygen Delivery Method Room Air Intake Visit Reasons: ER F/U, Rash under right breast Contact Assembler Required: No Accompanied by: Friend Allergies Sulfa (Sulfonamide Antibiotics) (SULFA (SULFONAMIDE ANTIBIOTICS)) Allergy (Unknown, Verified 05/05/25 10:54) UNKNOWN meloxicam Adverse Reaction (Intermediate, Verified 05/05/25 10:54) Unknown adhesive bandage Adverse Reaction (Intermediate, Uncoded 04/27/25 09:49) skin rash Medication List - Last Reconciled 05/05/25 by Monica Reid MD acitretin 25 mg PO DAILY ascorbic acid (vitamin C) (Vitamin C) 500 mg PO BID aspirin 81 mg PO DAILY atorvastatin 20 mg PO DAILY carvedilol 3.125 mg PO BID cephalexin 500 mg PO BID 7 days cholecalciferol (vitamin D3) 1,250 mcg PO QWEEK 3 months cyanocobalamin (vitamin B-12) 1,000 mcg PO 5XW doxepin 6 mg PO BEDTIME folic acid 1 mg PO DAILY melatonin-pyridoxine HCl (B6) 5-10 mg ER 1 tab PO BEDTIME PRN mirtazapine 30 mg PO BEDTIME potassium chloride ER 20 mEq PO DAILY tacrolimus 0.1% topical BID PRN Tobacco use date assessed: 04/27/25 Fall risk assessment: No Falls in past year Last assessed Fall Risk: 05/05/25 Dental Screening Dental Screen Date: 04/27/25 HPI HPI Comments History of Present Illness Details The patient is a 74 year old female presenting for an ER follow-up and evaluation of a rash. Accompanied by transitional care manager Nancy. Recent ER visit for discovery of abnormal findings on imaging including: - Occlusion of the left superficial femoral artery at its origin with reconstitution of the popliteal artery, probable moderate to severe focal stenosis of the right common femoral artery. Focal wall thickening of the hepatic flexure of the colon, suspicious for a mass. Has upcoming appt with vascular, also has [facility] appt due to irregularity incidentally noted in colon on imaging. Has seen Dr. John before after episodes of diverticulitis and abscess requiring drain placement. Dermatitis: The patient has a history of a skin issue that began in June after a mammogram resulted in a skin irritation in the right inframammary crease. It was initially treated with bacitracin and later triple antibiotic ointment, but it never fully cleared, with intermittent pain and a persistent red spot over several months. Over the last few days, the area has flared up, becoming very large and slightly sore, but not significantly itchy. 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 Left leg swelling Dementia GERD (gastroesophageal reflux disease) Osteoporosis Colocutaneous fistula Cutaneous lupus erythematosus Mixed hyperlipidemia Primary hypertension Recurrent UTI Surgical History (Updated 04/27/25 @ 10:02 by Monica Reid MD) Hx of cholecystectomy Hx of appendectomy History of colonoscopy (~12/10/16) Social History Housing: House Patient Tobacco Use Status: Current everyday Tobacco user Cigarettes Per Day: 8 Years Smoked: 40 years e-Cigarette/Vaping Use: Never Used Advance Directives Date on File: 03/06/20 service: No Current occupational status: retired Questionnaire AUDIT C Alcohol Use Questionnaire (AUDIT-C) 1. How often do you have a drink containing alcohol?: Never 3. How often do you have six or more drinks on one occasion?: Never Total Score: 0 Review of Systems Narrative Review of Systems - Constitutional: Reports general well-being, stating she fights through everything. - Integumentary: Reports a large, slightly sore rash under the right breast that flared up over the last few days. - She states it is not significantly itchy and denies scratching it. Physical exam (Primary Care) Vital Signs: Last Vital Signs Temp 97.1 F 05/05/25 10:56 Pulse 76 05/05/25 10:56 Resp 16 05/05/25 10:56 BP 98/60 05/05/25 10:56 Pulse Ox 96 05/05/25 10:56 Oxygen Delivery Method Room Air 05/05/25 10:56 BMI result Body Mass Index 22.2 Tobacco/Smoking Status: Tobacco use Status Tobacco use date assessed 04/27/25 05/05/25 10:55 Patient Tobacco Use Status Current everyday Tobacco 05/05/25 10:55 e-Cigarette/Vaping Use Never Used 05/05/25 10:55 Narrative Physical Exam - Pulmonary: Lungs are clear to auscultation. - Cardiovascular: Regular rhythm. Soft murmur - Integumentary: Examination reveals erythematous rash in the right inframammary fold. - There is mild irritation in the left inframammary fold and medial to the left breast. - The umbilical area is clear of any rash. Coding Level of Care Code Est Pt Level 4 (60756) Add On Problem Visit Only Diagnoses Primary hypertension I10 Dermatitis L30.9 Time Spent (min) 35 Comment chart review, document prep, visit time Assessment & Plan Assessment & Plan (1) Primary hypertension: Code(s): I10 - Essential (primary) hypertension Category: Medical (2) Dermatitis: Code(s): L30.9 - Dermatitis, unspecified Category: Medical Plan Assessment and Plan 1. Candidal Intertrigo - The patient presents with a rash in the right inframammary fold, consistent with a fungal infection, likely candidal, exacerbated by moisture. - This developed from a skin irritation post-mammogram months ago and recently flared. - The plan is to prescribe an antifungal cream. - Due to her immunosuppressed state, a prophylactic antibiotic will also be prescribed to prevent secondary cellulitis. 2. HTN: - The patient 's caregiver was asked to call in the log after one week of checking BP - plan to potentially reduce carvedilol dose to once per day Plan - Prescribe an antifungal cream for the rash. - Prescribe an antibiotic to prevent cellulitis, given the patient's immunosuppressed status. - Patient to monitor blood pressure daily for one week and call in the results. - Advised patient/caregiver to re-contact [facility] Dr. John's office regarding the general surgery referral - Follow up as scheduled Patient Instructions - An antifungal cream will be prescribed for your rash; apply it as directed. - You will also be prescribed an antibiotic pill to prevent any skin infection; take this as directed. - Please check your blood pressure once a day for one week. - After you have a week's worth of readings, call our office to report them. Orders: Orders Urine Culture Today N39.0 - Urinary tract infection, site not specified Medications: New clotrimazole 1% 1 appl topical TID 45 grams 0RF breast rash amoxicillin 500 mg PO TID 21 tabs 0RF Discontinued cephalexin take with food Discontinued Reason: Doctor's Order 500 mg PO BID 7 days 14 tabs 0RF
[2025-05-05 10:56] VITALS: BP 98/60; PULSE 76; RESP 16; TEMP 36.2; O2SAT 96; BMI 22.2
--- OUTSIDE RECORDS SUMMARY | 2025-05-05 13:39 | XMS_ITS | Patient Health Record ---
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, with unspecified presence of clinical manifestation (I70.203) Active confirmed Vital Signs Blood pressure diastolic 75 mm Hg 12/30/2024 Height 5ft3in in 12/30/2024 Blood pressure systolic 116 mm Hg 12/30/2024 Weight 118 lbs 12/30/2024 BMI 20.9 kg/m2 12/30/2024 Procedures Procedure Date Ordered Date Performed Result Body Sit e 30239-Rosx Destruction, 1-14 06/28/2024 N/A 65929-UQID SKIN LESIONS, OVER 4 06/28/2024 N/A D3551-EPHDIJGS DYSTROPHIC NAILS ANY # 06/28/2024 N/A 52036-UJET SKIN LESIONS, OVER 4 09/27/2024 N/A H5283-CCLCIMYV DYSTROPHIC NAILS ANY # 09/27/2024 N/A 04744-VGHW SKIN LESIONS, OVER 4 12/30/2024 N/A G0838-QHCDXZGJ DYSTROPHIC NAILS ANY # 12/30/2024 N/A Encounters Encounter Location Date Provider Diagnosis [facility] [address] 06/28/2024 Kiki Black 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, with unspecified presence of clinical manifestation I70.203 ; Plantar wart B07.0 and Pain in left toe(s) M79.675 [facility] [address] 09/27/2024 Kiki Black 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, with unspecified presence of clinical manifestation I70.203 ; Plantar wart B07.0 and Pain in left toe(s) M79.675 [facility] [place] [address] [place] [address] 12/30/2024 Kiki Black 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, with unspecified presence of clinical manifestation I70.203 Assessments Encounter Date Diagnosis (ICD Code) Assessment Notes Treatment Notes Treatment Clinical Notes Section Notes 06/28/2024 Plantar wart (ICD-10 - B07.0) 06/28/2024 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, with unspecified presence of clinical manifestation (ICD-10 - I70.203) 09/27/2024 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, with unspecified presence of clinical manifestation (ICD-10 - I70.203) 12/30/2024 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, with unspecified presence of clinical manifestation (ICD-10 - I70.203) 09/27/2024 Plantar wart (ICD-10 - B07.0) 06/28/2024 Pain in left toe(s) (ICD-10 - M79.675) 09/27/2024 Pain in left toe(s) (ICD-10 - M79.675) Plan Of Treatment Pending Test Test Name Order Date 81484-Dtuj Destruction, -08/28/2023 15799-Cyxx Destruction, -12/15/2023 64537-Rgbc Destruction, -03/25/2024 92776-Bdet Destruction, -06/28/2024 42309-Jfxxtxab Plate 08/28/2023 70661-MXIN SKIN LESIONS, OVER 4 08/28/19 24 52856-LBXK SKIN LESIONS, OVER 4 12/15/19 24 31020-ILIT SKIN LESIONS, OVER 4 06/28/19 25 78772-IWPA SKIN LESIONS, OVER 4 03/25/20 24 56897-NFDL SKIN LESIONS, OVER 4 09/28/19 25 23734-JUBS SKIN LESIONS, OVER 4 12/31/19 25 H9822-GLNTFGXJ DYSTROPHIC NAILS ANY # V7890-VKBGRKVR DYSTROPHIC NAILS ANY # R4982-OOGRXXWX DYSTROPHIC NAILS ANY # O8175-VGEOJRQH DYSTROPHIC NAILS ANY # A7385-MCSZCOMV DYSTROPHIC NAILS ANY # Y7380-NFTDCBAT DYSTROPHIC NAILS ANY # Next Appt Details Provider Name:Kiki Jordan , 05/09/2025 02:00:00 PM, [address] [place], [address], Insurance Providers Payer Name Payer Address Payer Phone Subscriber Number Group Number Insured Name Patient Relationship to Insured Coverage Start Date Coverage End Date [facility] [address] [place] [address] [phone] [id number] Yokasta Castillo Self - patient is [...]
== END 2025-05-05 11:45 | disposition home or self-care (01) ==
LOC: HO.HMCHD 10:43
PROVIDERS: PCP Internal Medicine; Visit Provider Internal Medicine
DX: I10 Essential (primary) hypertension (principal); L30.9 Dermatitis, unspecified

== ENCOUNTER 2025-05-05 11:51 | Outpatient (REF) | payer OTHER, SELFPAY | END 2025-05-05 11:52 | disposition home or self-care (01) | LOC: HO.10HDL 11:51 | PROVIDERS: Visit Provider Internal Medicine | DX: N39.0 Urinary tract infection, site not specified (principal) | CPT/HCPCS: 87086; 87088; 87186 ==

== ENCOUNTER 2025-05-11 10:59 | Outpatient (AMB) | payer OTHER, SELFPAY ==
--- OUTSIDE RECORDS SUMMARY | 2025-04-07 08:30 | XMS_ITS ---
Author Organization [facility] Address [address] [address] Care Team Providers Care Tip Bander Name Role Phone Monica Reid Primary Care Provider Unavaila Kiki Chow [phone] Fernandez Encounters Encounter Location Date Provider Diagnosis [address] [address] 04/07/2025 Kiki Julian Plan Of Treatment Next Appt Details Provider Name:Kiki Jordan , 08/22/2025 11:15:00 AM, [address] [place] [address], [phone], Progress Notes * Yokasta CASTILLO MDOB :1950 (74 yo F)Acc No.[id number]:04/07/2025 Progress Note Patient: Yokasta SANZ Provider: Khalif Jordan DPM :1950 A ge:74 Y S ex:Female Date:04/07/2025 Address:[address] [place] [address] Pcp:Monica Reid Subjective: * Chief Complaints: * [address] Fernandez. * Medical History: Objective: * Vitals: Assessment: Plan: * Treatment: * Images: * The named appointment provid er may or may not be the originator of this progress note, and it is not deemed complete until electronically signed by the appointment provider. Sign off status: Pending * Provider: Khalif Jordan DPM Date: 06/07/2024 Generated for Cortes Falcon on: 07/12/2024 11:04 AM EST
--- OUTSIDE RECORDS SUMMARY | 2025-05-09 09:00 | XMS_ITS ---
[facility] Address [address] [place] [address] Care Team Providers Care Tare Worker Name Role Phone Monica Reid Primary Care Provider Unavaila ble Black, Kiki Unavailable [phone] Allergies Allergen (clinical drug ingredient) Drug/Non Drug Allergy documented on EMR Reaction Allergy Type Onset Date Status Adhesive Unknown Allergy Active Substance with sulfonamide structure and antibacterial mechanism of action (substance) Sulfa Antibiotics Unknown Drug Allergy Active REASON FOR VISIT At Risk Footcare, Painful Nail(s) aggrevated by shoes and causing difficulty standing/walking. Medications Medication SIG (Take, Route, Frequency, Duration) Notes Start Date End Date Status Mirtazapine 15 MG TAKE 1 TABLET BY NIMA TH EVERYDAY AT BEDTIME Oral; Duration: 30 Days Active Amoxicillin-Pot Clavulanate 875-125 MG TAKE 1 TABLET BY MOUTH 2 TIMES A DAY FOR 7 DAYS WITH FOOD Oral; Duration: 7 Days Active Murine Ear 6.5 % INSTILL 5 DROPS INTO BOTH EARS 2 TIMES A DAY FOR 4 DAYS Otic; Duration: 11 Days Not-Taking predniSONE 10 MG TAKE 2 TABLETS BY MO UTH EVERY DAY Oral; Duration: 30 Days Not-Taking Alendronate Sodium 70 MG Oral; Duration: 84 Days Not-Taking Carvedilol 3.125 MG Oral; Duration: 90 Days Active amLODIPine-Atorvastatin 10-40 MG TAKE 1 TABLET BY MOUTH EVERY DAY Oral; Duration: 90 Days Active Folic Acid 1 MG Oral; Duration: 90 Days Active Vitamin B-12 1000 MCG TAKE 1 TABLET BY M OUTH EVERY DAY Oral; Duration: 90 Days Active Doxepin HCl 6 MG Oral; Duration: 30 Days Active Potassimin Active Social History Tobacco Use: Social History Observation Description Date Details (start date - stop date) Never Smoker NA - NA Tobacco use other than smoking: Question Answer Notes Are you an other tobacco user? No Tobacco Control (Standard) Question Answer Notes Tobacco use: Nonsmoker AUDIT-C (Standard) Question Answer Notes Did you have a drink containing alcohol in the p ast year? No Points 0 Interpretation Negative Vital Signs Height 5ft3in in 05/09/2025 Weight 118 lbs 05/09/2025 BMI 20.9 kg/m2 05/09/2025 Blood pressure systolic 116 mm Hg 05/09/20 25 Blood pressure diastolic 70 mm Hg 025 Procedures Procedure Date Ordered Date Performed Result Body Sit e 62844-RBQM SKIN LESIONS, OVER 4 05/09/2025 N/A E4881-TSIGRRBM DYSTROPHIC NAILS ANY # 05/09/2025 N/A Encounters Encounter Location Date Provider Diagnosis [facility] [place] [address] [place] [address] 05/09/2025 Kiki Jordan Atherosclerosis of campo artery of both lower extremities, with unspecified presence of clinical manifestation I70.203 Assessments Encounter Date Diagnosis (ICD Code) Assessment Notes Treatment Notes Treatment Clinical Notes Section Notes 05/09/2025 Atherosclerosis of campo artery of both lower extremities, with unspecified presence of clinical manifestation (ICD-10 - I70.203) Plan Of Treatment Pending Test Test Name Order Date 01085-IRIZ SKIN LESIONS, OVER 4 05/09/20 25 H5392-XWSOLYVV DYSTROPHIC NAILS ANY # Next Appt Details Follow Up: 2 Months, Reason: Provider Name:Kiki Jordan , 08/22/2025 11:15:00 AM, [address] [place] [address], [phone], Procedure Notes * Category Sub-Category Detail Notes Keratoma Treatment Parring or Cutting o f Benign Hyperkeratotic Lesion(s) (-57) More than 4 Lesions - Due to the at risk nature of the patients medical condition as documented in the exam findings, performance of this keratoderma treatment is medically necessary as its management by an unskilled/untrained nonprofessional would put this patients foot and overall health at risk. Therefore, the benign hyperkeratotic lesions, ( 5 ) in total, locations as stated and described in the exam ( IPJ , T5 , SUB MTH (s) , 1 , B/L , Heel(s) , B/L ), were pared, and/or cut utilizing a sterile 15 blade, tissue nippers, and/or power dremel instrumentation by the physician of record - 51804, Q8 Nail Reduction Nail Reduction (-27) Trimming o f all dystrophic nails - Due to the at risk nature of the patients medical condition as documented in the exam findings, performance of this nail treatment is medically necessary as its management by an unskilled/untrained nonprofessional would put this patients foot and overall health at risk. Therefore, the dystrophic nails, in locations as stated and described in the exam ( T1, T2, T3, T4, T6, T7, T8, T9, ), were debrided by the phisician of record to reduce/remove overall nail length and girth, by manual and electrical means with use of a nail nipper and/or dremel, to more viable healthy nail plate or bed tissue - G0127, Q8 Progress Notes * Yokasta CASTILLO MDOB :1950 (74 yo F)Acc No.[id number]:05/09/2025 Progress Note Patient: Rochelle OSCAR Yokasta Moeller Provider: Khalif Jordan DPM :1950 A ge:74 Y S ex:Female Date:05/09/2025 Address:[address] [place], [place] [id number] Pcp:Monica Reid Subjective: * Chief Complaints: * A t Risk FootcarePainful Nail(s) aggrevated by shoes and causing difficulty standing/walking. * HPI: A t Risk footcare: Pt States Last PCP Visit: D ate: 0 09/01/2024 P ainful Nails: Pt States Last PCP Visit: D ate: 0 09/01/2024 * ROS: G eneral/Constitutional: Nausea d enies. V omiting d enies. H evelyn Thirst d enies. L oss appetite d enies. C hills d enies. F atigue d enies.?Fever d enies. N ight Sweats d enies. U nexplained weight loss d enies. U nexplained weight gain d enies. H EENTM: Dentures a dmits. D izziness d enies. G lasses/contacts a dmits. R etinopathy d enies. B lurred/double vision d enies. T MJ?denies. D ischarge/drainage d enies. I mplants d enies. S ore throat d enies. D ental implants d enies. H shiv of hearing d enies. D ifficulty chewing/swallowing/speaking d enies. N ose bleeds d enies. S ore mouth d enies. ? R espiratory: On Oxygen d enies. P neumonia/pleurisy d enies.?Bronchitis d enies. E mphysema d enies. C oughing d enies. C ough blood?denies. S hortness of breath d enies. W heezing d enies. C ardiovascular: Pacemaker d enies. M SHOW HOST/HOSTESS d enies. W PW d enies. C HF d enies. H eart attack d enies. S eptal defect d enies. R apid beat d enies. C hest pain d enies. A trial Fib. d enies. M urmur/Palpitations d enies. G astrointestinal: Hemorrhoids d enies. S tomach/Abdominal pain d enies. D ark blood stool d enies. I rritable bowel d enies. C onstipation d enies. D iarrhea d enies. H ematology: Swelling d enies. C lots d enies. V aricose Veins d enies. B ruising a dmits. B leeding problem d enies. G enitourinary: Blood urine d enies. F requent/Painfu/urination/bladder control d enies. K idney stones d enies. I nfection (UTI) d enies. N ephropathy d enies. s ex trans dis (STD) d enies. P rostate d enies. M usculoskeletal: Hammertoes d enies. B unions d enies. B ack Pain d enies. M uscle Cramps/ Resting d enies. M uscle cramps / walking d enies.?Generalized aches and pains a dmits. W eakness d enies. I nteg.: Andrews d enies. S cars d enies. C orns/calluses?, admits. I ngrown nails d enies. P ainful nails , admits. O pen Sores d enies. R ashes d enies. N eurologic: Difficulty sleeping d enies. B rain disorder d enies. N umbness d enies. B alance trouble d enies. C onfusion d enies. F ainting/blackouts d enies. T ingling d enies. T remors d enies. * Medical History: * Surgical History: J P Drain in stomach 08/2023 * Hospitalization/Major Diagno stic Procedure: [facility]- fall are one [facility]- open sores 11/2023 * Family History: M other: . F ather: . * Social History: T obacco Use: T obacco use other than smoking A re you an other tobacco user? N o Tobacco Control (Standard) T obacco use: N onsmoker D rugs/Alcohol: D rugs H ave you used drugs other than those for medical reasons in the past 12 months? N o M iscellaneous: C affeine: yes, 2-3 cups per day. Children: no. Exercise: no. Marital status: single. 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 D rug/Alcohol: A MOJGAN-C (Standard) D id you have a drink containing alcohol in the past year? N o P oints 0 I nterpretation N egative * Medications: T akingPotassimin Carvedilol 3.125 MG Tablet Oral amLODIPine-Atorvastatin 10-40 MG Tablet TAKE 1 TABLET BY MOUTH EVERY DAY Oral Folic Acid 1 MG Tablet Oral Vitamin B-12 1000 MCG Tablet TAKE 1 TABLET BY MOUTH EVERY DAY Oral Doxepin HCl 6 MG Tablet Oral Mirtazapine 15 MG Tablet TAKE 1 TABLET BY MOUTH EVERYDAY AT BEDTIME Oral Amoxicillin-Pot Clavulanate 875-125 MG Tablet TAKE 1 TABLET BY MOUTH 2 TIMES A DAY FOR 7 DAYS WITH FOOD Oral Taking Potassimin Taking Carvedilol 3.125 MG Tablet Oral Taking amLODIPine-Atorvastatin 10-40 MG Tablet TAKE 1 TABLET BY MOUTH EVERY DAY Oral Taking Folic Acid 1 MG Tablet Oral Taking Vitamin B-12 1000 MCG Tablet TAKE 1 TABLET BY MOUTH EVERY DAY Oral Taking Doxepin HCl 6 MG Tablet Oral Taking Mirtazapine 15 MG Tablet TAKE 1 TABLET BY MOUTH EVERYDAY AT BEDTIME Oral Taking Amoxicillin-Pot Clavulanate 875-125 MG Tablet TAKE 1 TABLET BY MOUTH 2 TIMES A DAY FOR 7 DAYS WITH FOOD Oral Not-Taking/PRNMurine Ear 6.5 % Solution INSTILL 5 DROPS INTO BOTH EARS 2 TIMES A DAY FOR 4 DAYS Otic predniSONE 10 MG Tablet TAKE 2 TABLETS BY MOUTH EVERY DAY Oral Alendronate Sodium 70 MG Tablet Oral Medication List reviewed and reconciled with the patientNot-Taking/PRN Murine Ear 6.5 % Solution INSTILL 5 DROPS INTO BOTH EARS 2 TIMES A DAY FOR 4 DAYS Otic Not-Taking/PRN predniSONE 10 MG Tablet TAKE 2 TABLETS BY MOUTH EVERY DAY Oral Not-Taking/PRN Alendronate Sodium 70 MG Tablet Oral Medication List reviewed and reconciled with the patient * Allergies: A dhesiveSulfa Ruby[Allergies Verified] Objective: * Vitals: H t: 5ft3in, Wt:118, BMI: 20.9, Shoe size:6.5, BP:116/70mm Hg, Ht-cm: 160.02 cm, Wt-k.52 kg. * Examination: G eneral Examination: GENERAL APPEARANCE: R jessies a pleasant, alert, well nourished, well-developed, well hydrated individual, who demonstrates proper attention to hygiene/body habitus, and is in no acute distress, Pt serves as own historian for office visit today. ORIENTED: p erson, place, and time. V ascular: DP PULSES (B): 0/4, B/L. PT PULSES (B): 0/4, B/L. CAPILLARY FILL TIME: delayed, all digits, B/L. TROPHIC CONDITION-TEXTURE/ELASTICITY/TURGOR/HAIR GROWTH (B):? decreased, B/L, dystrophic (thin,shiny). TEMPERTURE GRADIENT (C): decreased, cool to cool, proximal to distal, B/L. PIGMENTATION: h emosiderin deposition B/L. EDEMA (C): 1 /4 , B/L. CLAUDICATION (C): d enies, B/L. REST PAIN: d enies, B/L. TELANGECTASIA: p resent. D ermatologic: SKIN FINDINGS: S kin exam reveals Keratotic lesion(s) located at , IPJ , T 5 , SUB MTH (s) , 1 , B/L , Heel(s) , B/L. N ails: NAILS are: E longated, overgrown, dystrophic ,T1, T2, T3, T4, T6, T7, T8, T9. Assessment: * Assessment: 1. A therosclerosis of campo artery of both lower extremities, with unspecified presence of clinical manifestation - I70.203 (Primary) Plan: * Treatment: * Procedures: K eratoma Treatment: Parring or Cutting of Benign Hyperkeratotic Lesion(s) ( -57) More than 4 Lesions - Due to the at risk nature of the patients medical condition as documented in the exam findings, performance of this keratoderma treatment is medically necessary as its management by an unskilled/untrained nonprofessional would put this patients foot and overall health at risk. Therefore, the benign hyperkeratotic lesions, ( 5 ) in total, locations as stated and described in the exam ( IPJ , T5 , SUB MTH (s) , 1 , B/L , Heel(s) , B/L ), were pared, and/or cut utilizing a sterile 15 blade, tissue nippers, and/or power dremel instrumentation by the physician of record - 58677, Q8. N ail Reduction: Nail Reduction ( -27) Trimming of all dystrophic nails - Due to the at risk nature of the patients medical condition as documented in the exam findings, performance of this nail treatment is medically necessary as its management by an unskilled/untrained nonprofessional would put this patients foot and overall health at risk. Therefore, the dystrophic nails, in locations as stated and described in the exam ( T1, T2, T3, T4, T6, T7, T8, T9, ), were debrided by the phisician of record to reduce/remove overall nail length and girth, by manual and electrical means with use of a nail nipper and/or dremel, to more viable healthy nail plate or bed tissue - G0127, Q8. * Procedure Codes: 1 1057 TRIM SKIN LESIONS, OVER 4, Modifiers: Q8 G0127 TRIMMING DYSTROPHIC NAILS ANY #, Modifiers: Q8 , XS * Follow Up: 2 Months * Images: * Sign off status: Completed true * Provider: Khalif Jordan DPM Date: 07/10/2024 Generated for Cortes mortensen/Falisa/eTransmitting on: 07/12/2024 11:04 AM EST History and Physical Notes * HPI (History of Present Illness) Category Sub-Category Detail Notes Category Not es Painful Nails Pt States Last PCP Visit: Date:: 09/01/2024 At Risk footcare Pt States Last PCP Visit: Date:: 09/02/19 25 Examination Category Sub-Category Detail Notes Category Not es Dermatologic SKIN FINDINGS: Skin exam reveal s Keratotic lesion(s) located at , IPJ , T5 , SUB MTH (s) , 1 , B/L , Heel(s) , B/L VERRUCA: Orthopedic FOOTWEAR EVALUATION: General Examination GENERAL APPEARANCE: Reveals a pleasant, alert, well nourished, well-developed, well hydrated individual, who demonstrates proper attention to hygiene/body habitus, and is in no acute distress, Pt serves as own historian for office visit today ORIENTED: person, place, and t elise [facility] DP PULSES (B): 0/4, B/L PT PULSES (B): 0/4, B/L CAPILLARY FILL TIME: delayed, all digits , B/L TEMPERTURE GRADIENT (C): decreased, cool to cool, proximal to distal, B/L TROPHIC CONDITION-TEXTURE/ELASTICITY/TURGOR/HAIR GROWTH (B): decreased, B/L, dystrophic (thin,shiny) EDEMA (C): 1/4 , B/L TELANGECTASIA: present CLAUDICATION (C): denies, B/L REST PAIN: denies, B/L PIGMENTATION: hemosiderin depositi on B/L Nails NAILS are: Elongated, overg rown, dystrophic ,T1, T2, T3, T4, T6, T7, T8, T9
--- OUTSIDE RECORDS SUMMARY | 2025-05-11 11:05 | XMS_ITS | Patient Health Record ---
Author Organization [facility] Address [address] [place] [address] Care Team Providers Care Blow Down Operator Name Role Phone JeanetteKeisha inmanberly Primary Care Provider Unavaila pattie Black, Kiki Unavailable [phone] Allergies Allergen (clinical drug ingredient) Drug/Non Drug [...] 6 MG Oral; Duration: 30 Days Active Immunizations Vaccine Route Administration Date Status Comme nts Influenza Unknown 03/19/2024 Administered Influenza Unknown 01/20/2025 Administered Social History Tobacco Use: Social History [...] atherosclerosis of arteries of lower limbs (disorder) ([id number] ) Atherosclerosis of [place] artery of both lower extremities, with unspecified presence of clinical manifestation (I70.203) Active confirmed Vital Signs Blood pressure diastolic 70 mm Hg 05/09/2025 Height 5ft3in in 05/09/2025 Blood pressure systolic 116 mm Hg 05/09/2025 Weight 118 lbs 05/09/2025 BMI 20.9 kg/m2 05/09/2025 Procedures Procedure Date Ordered Date Performed Result Body Sit e 09971-Jtdm Destruction, 1-14 06/28/2024 N/A 24073-WDGF SKIN LESIONS, OVER 4 06/28/2024 N/A R5772-SGGAQEIA DYSTROPHIC NAILS ANY # 06/28/2024 N/A 31004-VUHW SKIN LESIONS, OVER 4 09/27/2024 N/A B2472-OURRHTXI DYSTROPHIC NAILS ANY # 09/27/2024 N/A 44054-OFNG SKIN LESIONS, OVER 4 12/30/2024 N/A Z6207-UUVXMANS DYSTROPHIC NAILS ANY # 12/30/2024 N/A 59399-DURA SKIN LESIONS, OVER 4 05/09/2025 N/A I1539-ASVLEHAA DYSTROPHIC NAILS ANY # 05/09/2025 N/A Encounters Encounter Location Date Provider Diagnosis [facility] [address] [address] 06/28/2024 Kiki Black Atherosclerosis of [place] artery of both lower extremities, with unspecified presence of clinical manifestation I70.203 ; Plantar wart B07.0 and Pain in left toe(s) M79.675 [facility] [address] [address] 09/27/2024 Kiki Black Atherosclerosis of [place] artery of both lower extremities, with unspecified presence of clinical manifestation I70.203 ; Plantar wart B07.0 and Pain in left toe(s) M79.[address] [address] 12/30/2024 Kiki Black Atherosclerosis of [place] artery of both lower extremities, with unspecified presence of clinical manifestation I70.[address] [facility] [address] 05/09/2025 Kiki Black Atherosclerosis of [place] artery of both lower extremities, with unspecified presence of clinical manifestation I70.203 Assessments Encounter Date Diagnosis (ICD Code) Assessment Notes Treatment Notes Treatment Clinical Notes Section Notes 06/28/2024 Plantar wart (ICD-10 - B07.0) 06/28/2024 Atherosclerosis of [place] artery of both lower extremities, with unspecified presence of clinical manifestation (ICD-10 - I70.203) 09/27/2024 Atherosclerosis of [place] artery of both lower extremities, with unspecified presence of clinical manifestation (ICD-10 - I70.203) 12/30/2024 Atherosclerosis of [place] artery of both lower extremities, with unspecified presence of clinical manifestation (ICD-10 - I70.203) 05/09/2025 Atherosclerosis of [place] artery of both lower extremities, with unspecified presence of clinical manifestation (ICD-10 - I70.203) 09/27/2024 Plantar wart (ICD-10 - B07.0) 06/28/2024 Pain in left toe(s) (ICD-10 - M79.675) 09/27/2024 Pain in left toe(s) (ICD-10 - M79.675) Plan Of Treatment Pending Test Test Name Order Date 82418-Zdze Destruction, -08/28/2023 33408-Mlxc Destruction, 06-0112/15/2023 25415-Vtrn Destruction, -03/25/2024 57396-Tclp Destruction, -06/28/2024 07059-Ykcvufff Plate 08/28/2023 93887-DYSK SKIN LESIONS, OVER 4 08/28/19 24 62284-AGOA SKIN LESIONS, OVER 4 12/15/19 24 70537-VRYF SKIN LESIONS, OVER 4 06/28/19 25 33363-CMQL SKIN LESIONS, OVER 4 03/25/20 24 49243-CFGA SKIN LESIONS, OVER 4 09/28/19 25 74083-AYGC SKIN LESIONS, OVER 4 12/31/19 25 73178-BZML SKIN LESIONS, OVER 4 05/09/20 25 T9876-WQJKLVFC DYSTROPHIC NAILS ANY # F9562-VHWZTNCI DYSTROPHIC NAILS ANY # L3684-BVEHHQOW DYSTROPHIC NAILS ANY # T4042-QHXAZUEQ DYSTROPHIC NAILS ANY # H9781-KNVDZKSQ DYSTROPHIC NAILS ANY # P4234-ZQHTNAAA DYSTROPHIC NAILS ANY # Z1139-WBROFVNA DYSTROPHIC NAILS ANY # Next Appt Details Provider Name:Kiki Jordan , 08/22/2025 11:15:00 AM, [address] [place], [address], Insurance Providers Payer Name Payer Address Payer Phone Subscriber Number Group Number Insured Name Patient Relationship to Insured Coverage Start Date Coverage End Date [facility] [address] [place] [address] [id number] Yokasta Castillo Self - patient is [...]
--- OUTSIDE RECORDS SUMMARY | 2025-05-11 11:05 | XMS_ITS ---
Author Organization [facility] Care Team Providers Care Hat And Cap Drying Room Attendant Name Role Phone Ada Melvin Unavailable Unavailable Kenny Bonds Unavailable Unavailable Allergies and adverse reactions Code CodeSystem Substance Reaction Severity StartDate Concern Status adhesive bandage Unknown 09/23/20[place] [address] RXNORM Meloxicam Unknown 09/23/[address] Sulfa Antibiotics Unknown 09/23/2023 active Care Team Name Role Address Phone Organization Dates Kenny Bonds PCP [address] [place] [address], [address], [place] (Office): : [facility] 09/23/2023 - 09/25/2023 Ada Melvin [place], [facility] 09/23/2023 - 09/25/2023 Goals Section Goals [...] information 2023 Code: 51 Code System OID:[id number] .[id number]. 5 Code System Name: Source of Payment Typology (PHDNJ) Display: Managed Care (Private) Translation: Code: Code System: OID:[id number] .[id number]. 1336 Code System Name: Insurance Type Code ([id number]) Display Name: Health Maintenance Organization (HMO) Plan Code: SELF Code System Name: HL7 RoleCode Code System OID:[id number] .[id number] Display Name: Self [id number] Root: [id number] Payer Name: [employer] Address: [facility] [place] City: [place] State: [place] Country: [place] Code: 81 Code System OID:[id number] .[id number]. 5 Code System Name: Source of Payment Typology (PHDSC) Display: Self Pay Translation: Code: 09 Code System: OID:[id number] .[id number]. 1336 Code System Name: Insurance Type Code ([id number]) Display Name: Self-pay Plan of Treatment Section Interventions Intervention Code Code System Display Name Proposed D ate Problems Problem # Description Date of onset Resolved Date Code CodeSystem Concern Status 1 ABNORMAL LEVEL OF BLOOD MINERAL 09/23/[address] active 2 DEFICIENCY OF OTHER SPECIFIED B GROUP VITAMINS 09/23/[address] active 3 DIARRHEA, UNSPECIFIED 09/23/[address] active 4 DISCOID LUPUS ERYTHEMATOSUS 09/23/[address] active 5 DIVERTICULITIS OF INTESTINE, PART UNSPECIFIED, WITHOUT PERFORATION OR ABSCESS WITHOUT BLEEDING 09/23/[address] active 6 ESSENTIAL (PRIMARY) HYPERTENSION 09/23/[address] active 7 GASTRO-ESOPHAGEAL REFLUX DISEASE WITHOUT ESOPHAGITIS 09/23/[address] active 8 HYPERLIPIDEMIA, UNSPECIFIED 09/23/[address] active 9 HYPOKALEMIA 09/23/[address] active 10 UNSPECIFIED DEMENTIA, UNSPECIFIED SEVERITY, WITHOUT BEHAVIORAL DISTURBANCE, PSYCHOTIC DISTURBANCE, MOOD DISTURBANCE, AND ANXIETY 09/23/[address] active 11 WEAKNESS 09/23/[address] active Reason for Referral No Reasons for Referral Entered Social History Social History Observation Description Start Date End Date Code Code System Current Smoking Status Tobacco smoking consumption unknown 616995886 SNOMED CT Sex Assigned At Female 1950 [address]-9 [facility] Gender Identity Sexual Orientation Vital Signs Code Code System Vitals Name Values and Units Timing Information 95076-5 [facility] Pain Level Value=0.0 09/25/2023 8302-2 [facility] Height Value=64.0 Units=Inches 09/24/2023 76111-5 [facility] Weight Wkdao=185.7 Units=Lbs 12/2023 82467-6 [facility] O2 % BldC Oximetry Value=97.0 Units= % 09/24/2023 9279-1 [facility] Respiratory Rate Value=16.0 Units=/m in 09/24/2023 8310-5 [facility] Body Temperature Value=97.7 Units= F 09/24/2023 8867-4 [facility] Heart rate Value=72.0 Units=/min 12/2023 8462-4 [facility] Blood Pressure-Diastolic Value=59 Un its=mmHg 09/24/2023 8480-6 [facility] Blood Pressure-Systolic Value=98 Uni ts=mmHg 09/24/2023
--- NOTE | 2025-05-11 11:06 | MHC.OFFVIS ---
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 Patient states her left leg has been swelling. No pain or complaints today. 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 Her daughter first noticed the swelling about a week before a visit with her primary care provider, Dr. Nguyễn, who subsequently ordered a venous ultrasound of the left leg. Due to concerning findings on the ultrasound, the patient was directed to the emergency room where a CT scan was performed. The patient's medical history is significant for diverticulitis last year, which required a 10-day hospitalization with a drain, followed by a month and a half in a rehabilitation facility. 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 A colorectal specialist previously deferred surgical intervention due to her weakened state at the time. The patient smokes half a pack of cigarettes per day and denies having diabetes. Regarding her functional status, she can walk about two blocks, navigate grocery stores, and manage a few stairs while holding onto railings. She reports occasional leg soreness but denies significant pain. 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 Left leg swelling Dementia GERD (gastroesophageal reflux disease) Osteoporosis Colocutaneous fistula Cutaneous lupus erythematosus Mixed hyperlipidemia Primary hypertension Recurrent UTI Surgical History Hx of cholecystectomy Hx of appendectomy History of colonoscopy (~12/10/16) Social History Housing: House Patient Tobacco Use Status: Current everyday Tobacco user Cigarettes Per Day: 8 Years Smoked: 40 years e-Cigarette/Vaping Use: Never Used Advance Directives Date on File: 03/06/20 service: No Current occupational status: retired Review of Systems Const All systems reviewed & are unremarkable except as noted in HPI and below Reports no additional complaints ENT Reports Normal hearing present Card Denies chest pain, Denies chest pain at rest, Denies chest pain with activity and Denies pedal edema Resp Denies cough GI Denies abdominal pain Musc Denies abnormal gait, Denies muscle cramps and Denies radiating pain into limb Skin/Breast Denies skin ulcer and Denies wounds Neuro Reports Normal hearing present and Denies abnormal gait Psych Reports no additional complaints Physical Exam Const General: cooperative, healthy appearing and comfortable Orientation/consciousness: oriented to person, oriented to place and oriented to time HEENT Head: Yes normal to inspection Neck Neck: Yes normal visual inspection Carotids: no bruits Chest Chest palpation & inspection: normal inspection of the chest Resp Effort & Inspection: normal respiratory effort and able to speak in complete sentences Auscultation: clear to auscultation bilaterally, no crackles, no rales, no rhonchi and no wheezes Cardio Other: Bilateral DP signals Rate: regular rate Rhythm: regular rhythm Heart sounds: S1 normal heart sound present and S2 normal heart sound present Bruits: no carotid bruits GI Inspection: Yes normal to inspection Skin Wounds: no wounds Hair: normal Neuro General: oriented to person, oriented to place and oriented to time Cranial nerves: Yes CN's II-XII intact bilaterally and Yes Normal hearing present Cognition (Neuro): normal cognition Motor exam (neuro): 5/5 motor strength present throughout Extrem Other: venous exam: No significant superficial varicosities or spider telangiectasias, minimal edema General: No clubbing, No cyanosis and No edema Psych Appearance: grossly normal Mental Status: mental status grossly normal Speech and movement: Normal speech and movement present Results Reviewed Results Reviewed: CT scan dated 04/29/2025 demonstrates occlusion of left SFA and high-grade stenosis of right common femoral artery. Written report and images were reviewed. Assessment & Plan Assessment & Plan (1) Peripheral arterial disease: Code(s): I73.9 - Peripheral vascular disease, unspecified Category: Medical Plan: In short patient has an element of PA D. Due to her baseline dementia and overall comorbidities I would like to maintain her as conservatively as possible.I reviewed the patient's CT scan from April 29 and explained that it shows some arterial blockage in her leg. I advised that because she is functionally well and not limited by her symptoms, we do not need to pursue immediate intervention. I explained that the plan is to get a baseline arterial ultrasound, which is a different test from the venous ultrasound she had previously, to better assess the arteries. We will have her return for a follow-up visit after the ultrasound to discuss the results and establish a monitoring plan, making it clear that we would reconsider intervention if her symptoms worsen. Thank you for allowing us to assist in her care. If there are any questions or concerns please do not hesitate to contact us Orders: Orders US arterial duplex LE BI Today I73.9 - Peripheral vascular disease, unspecified Coding Level of Care Code New Pt Level 4 (71394) Diagnoses Peripheral arterial disease I73.9
== END 2025-05-11 12:03 | disposition home or self-care (01) ==
LOC: HO.HVS 11:00
PROVIDERS: PCP Internal Medicine; Visit Provider Surgery Vascular Surgery
DX: I73.9 Peripheral vascular disease, unspecified (principal)
CPT/HCPCS: 99204